=== PATIENT | female | born 1930 | race African-American/Black ===

== ENCOUNTER 2016-09-24 20:01 | Inpatient (IN) | payer MEDICARE, OTHER ==
[~2016-09-24] VITALS: Ht 170.2 cm; Wt 75.6 kg
[2016-09-24] MEDS ORDERED: SODIUM CHLORIDE 0.9% 1,000ML IVBOLUS ONE (20:30)
[2016-09-24] MEDS ORDERED: SODIUM CHLORIDE FLUSH 10ML SYR IVF ONE (20:30)
[2016-09-24] MEDS ORDERED: AMLO10TA2 PO (20:38)
[2016-09-24] MEDS ORDERED: ASPI-496 PO (20:39)
[2016-09-24] MEDS ORDERED: LORazepam 1MG TABLET PO ONE (21:00)
[2016-09-24] MEDS ORDERED: PLEASE ENTER ALLERGIES MC SCH ×2 (21:00)
[2016-09-24] MEDS ORDERED: LORazepam 1MG TABLET ONE (21:04)
[2016-09-24 21:10] LABS: BLOOD UREA NITROGEN 14 mg/dL (7-18)
[2016-09-24 21:14] LABS: ASPARTATE AMINO TRANSFERASE 34 U/L (15-37)
[2016-09-24] MEDS ORDERED: METOPROLOL 1 MG/ML, 5ML IVPush ONE (22:00)
[2016-09-24] MEDS ORDERED: METOPROLOL 1 MG/ML, 5ML ONE (22:23)
[2016-09-25] MEDS ORDERED: ACETAMINOPHEN 325 MG TABLET PO PRN
[2016-09-25] MEDS ORDERED: hydrALAzine 20 MG/ML, 1ML IV PRN
[2016-09-25] MEDS ORDERED: ONDANSETRON 2MG/ML, 2ML IVP PRN
[2016-09-25] MEDS ORDERED: POLYETHYLENE GLYCOL 17 GM PACKET PO PRN
[2016-09-25] MEDS ORDERED: BISACODYL 10 MG SUPP PR PRN
[2016-09-25] MEDS ORDERED: POTASSIUM CHLORIDE 20 MEQ TAB.ER.PRT PO ONE ×2 (00:30→11:30)
[2016-09-25 01:35] VITALS: BP 166/104
[2016-09-25 02:10] VITALS: BP 166/104
[2016-09-25 04:52] LABS: BLOOD UREA NITROGEN 11 mg/dL (7-18)
[2016-09-25 04:55] LABS: ASPARTATE AMINO TRANSFERASE 26 U/L (15-37)
[2016-09-25] MEDS: HEPARIN 5,000 UNITS/ML, 1ML SQ SCH ×3 (04:56→22:34)
[2016-09-25] MEDS: SODIUM CHLORIDE FLUSH 10ML SYR IVF SCH ×3 (04:56→21:00)
[2016-09-25 06:39] VITALS: BP 161/98
[2016-09-25] MEDS: SENNA/DOCUSATE TABLET PO SCH (09:00)
[2016-09-25] MEDS: AMLODIPINE 5 MG TABLET PO SCH (09:38)
[2016-09-25] MEDS: ASPIRIN 81 MG TABLET EC PO SCH (09:38)
[2016-09-25] MEDS ORDERED: LISINOPRIL 20 MG TABLET PO SCH (11:30)
[2016-09-25 13:42] VITALS: BP 149/80
[2016-09-25] MEDS ORDERED: ARTIFICIAL TEARS OPHTH SOLN 15ML EACHEYE PRN (14:30)
[2016-09-25 19:10] VITALS: BP 111/75
[2016-09-25] MEDS: LISINOPRIL 10 MG TABLET PO SCH (21:00)
[2016-09-26 03:14] VITALS: BP 158/92
[2016-09-26] MEDS: HEPARIN 5,000 UNITS/ML, 1ML SQ SCH ×3 (05:32→21:10)
[2016-09-26 05:44] LABS: BLOOD UREA NITROGEN 12 mg/dL (7-18)
[2016-09-26 07:30] VITALS: BP 129/76
[2016-09-26] MEDS: ASPIRIN 81 MG TABLET EC PO SCH (08:44)
[2016-09-26] MEDS: SENNA/DOCUSATE TABLET PO SCH (08:44)
[2016-09-26] MEDS: LISINOPRIL 10 MG TABLET PO SCH ×2 (08:44→21:10)
[2016-09-26] MEDS: AMLODIPINE 5 MG TABLET PO SCH (08:45)
[2016-09-26] MEDS: SODIUM CHLORIDE FLUSH 10ML SYR IVF SCH ×2 (08:53→21:10)
[2016-09-26 13:45] VITALS: BP 135/77
[2016-09-26 20:00] VITALS: BP 129/81
[2016-09-27 01:20] VITALS: BP 117/78
[2016-09-27] MEDS: HEPARIN 5,000 UNITS/ML, 1ML SQ SCH ×3 (05:25→22:24)
[2016-09-27 07:05] VITALS: BP 131/78
[2016-09-27] MEDS: ASPIRIN 81 MG TABLET EC PO SCH (08:35)
[2016-09-27] MEDS: SODIUM CHLORIDE FLUSH 10ML SYR IVF SCH ×2 (08:35→22:24)
[2016-09-27] MEDS: AMLODIPINE 5 MG TABLET PO SCH (08:35)
[2016-09-27] MEDS: SENNA/DOCUSATE TABLET PO SCH (08:36)
[2016-09-27] MEDS: LISINOPRIL 10 MG TABLET PO SCH ×2 (08:36→22:21)
[2016-09-27] MEDS ORDERED: OMNIPAQUE 350 MG/ML, 100ML BOTTLE ONE (13:37)
[2016-09-27 13:38] VITALS: BP 116/71
[2016-09-27 20:27] VITALS: BP 121/78
[2016-09-28 01:24] VITALS: BP 116/72
[2016-09-28] MEDS: HEPARIN 5,000 UNITS/ML, 1ML SQ SCH ×3 (05:53→21:57)
[2016-09-28 07:00] VITALS: BP 114/70
[2016-09-28] MEDS: AMLODIPINE 5 MG TABLET PO SCH (08:49)
[2016-09-28] MEDS: LISINOPRIL 10 MG TABLET PO SCH ×2 (08:49→21:56)
[2016-09-28] MEDS: SENNA/DOCUSATE TABLET PO SCH (08:49)
[2016-09-28] MEDS: ASPIRIN 81 MG TABLET EC PO SCH (08:49)
[2016-09-28] MEDS: SODIUM CHLORIDE FLUSH 10ML SYR IVF SCH ×2 (08:50→21:56)
[2016-09-28] MEDS: OMEPRAZOLE 20 MG CAPSULE.DR PO SCH ×2 (10:38→21:56)
[2016-09-28] MEDS: SUCRALFATE 1 GM/10 ML UDC PO SCH ×3 (10:39→21:56)
[2016-09-28 12:29] VITALS: BP 137/79
[2016-09-28] MEDS ORDERED: SERTRALINE 50MG TABLET PO ONE (15:30)
[2016-09-28 19:05] VITALS: BP 143/87
[2016-09-29 02:26] VITALS: BP 129/74
[2016-09-29] MEDS: HEPARIN 5,000 UNITS/ML, 1ML SQ SCH ×2 (05:19→16:13)
[2016-09-29 06:51] VITALS: BP 159/72
[2016-09-29] MEDS: SUCRALFATE 1 GM/10 ML UDC PO SCH ×4 (08:04→20:36)
[2016-09-29] MEDS: SERTRALINE 50MG TABLET PO SCH (08:05)
[2016-09-29] MEDS: AMLODIPINE 5 MG TABLET PO SCH (08:05)
[2016-09-29] MEDS: LISINOPRIL 10 MG TABLET PO SCH ×2 (08:06→20:36)
[2016-09-29] MEDS: OMEPRAZOLE 20 MG CAPSULE.DR PO SCH ×2 (08:06→20:36)
[2016-09-29] MEDS: ASPIRIN 81 MG TABLET EC PO SCH (08:06)
[2016-09-29] MEDS: SENNA/DOCUSATE TABLET PO SCH (08:09)
[2016-09-29] MEDS: SODIUM CHLORIDE FLUSH 10ML SYR IVF SCH ×2 (09:00→20:38)
[2016-09-29] MEDS ORDERED: LISI-167 PO (10:19)
[2016-09-29] MEDS ORDERED: SUCR1ORA2 PO (10:19)
[2016-09-29] MEDS ORDERED: SERT50TA5 PO (10:19)
[2016-09-29] MEDS ORDERED: OMEP-110 PO (10:19)
[2016-09-29] MEDS ORDERED: ACET325T14 PO (10:32)
[2016-09-29] MEDS ORDERED: TRAM50TA2 PO (10:32)
[2016-09-29 13:57] VITALS: BP 99/63
[2016-09-29 20:28] VITALS: BP 118/73
[2016-09-30] MEDS: HEPARIN 5,000 UNITS/ML, 1ML SQ SCH ×2 (00:10→09:29)
[2016-09-30 02:21] VITALS: BP 138/77
[2016-09-30 07:16] VITALS: BP 132/75
[2016-09-30] MEDS: SODIUM CHLORIDE FLUSH 10ML SYR IVF SCH (09:00)
[2016-09-30] MEDS: SENNA/DOCUSATE TABLET PO SCH (09:00)
[2016-09-30] MEDS: SUCRALFATE 1 GM/10 ML UDC PO SCH ×3 (09:28→16:08)
[2016-09-30] MEDS: OMEPRAZOLE 20 MG CAPSULE.DR PO SCH (09:29)
[2016-09-30] MEDS: ASPIRIN 81 MG TABLET EC PO SCH (09:29)
[2016-09-30] MEDS: LISINOPRIL 10 MG TABLET PO SCH (09:29)
[2016-09-30] MEDS: AMLODIPINE 5 MG TABLET PO SCH (09:29)
[2016-09-30] MEDS: SERTRALINE 50MG TABLET PO SCH (09:30)
[2016-09-30 14:06] VITALS: BP 134/78
== END 2016-09-30 17:20 | DRG 78 ==
LOC: ED 22:51 → EDIP 22:52 → ED 23:03 → 4WST 09-25 01:17
PROVIDERS: ATTEND Internal Medicine
DX: I67.4 Hypertensive encephalopathy (principal); I16.9 Hypertensive crisis, unspecified; F32.1 Major depressive disorder, single episode, moderate; F03.90 Unspecified dementia, unspecified severity, without behavioral disturbance, psychotic disturbance, mood disturbance, and anxiety; E87.6 Hypokalemia; F09 Unspecified mental disorder due to known physiological condition; F41.1 Generalized anxiety disorder; I10 Essential (primary) hypertension; M17.11 Unilateral primary osteoarthritis, right knee; K29.70 Gastritis, unspecified, without bleeding; M19.90 Unspecified osteoarthritis, unspecified site; N28.1 Cyst of kidney, acquired; Z91.14 Patient's other noncompliance with medication regimen; I25.2 Old myocardial infarction
CPT/HCPCS: 36415; 70450; 71010; 74177; 80048; 80053; 81001; 85025; 87086; 93005; 96374; J1644; Q9967; 92523-GN; J7030